=== PATIENT | female | born 1935 | race African-American/Black ===

== ENCOUNTER 2022-05-09 19:45 | Emergency (ER) | payer MEDICARE ==
[2022-05-09 21:15] LABS: ALT (SGPT) Less than 7 U/L (8-55); AST (SGOT) 10 U/L (5-34); Albumin 4.1 g/dL (3.4-4.8); Alkaline Phosphatase 64 U/L (40-110); Anion Gap 16 mmol/L (10-20); BUN (Urea Nitrogen) 15 mg/dL (9.8-20.1); Bilirubin, Total 0.5 mg/dL (0.2-1.2); Calc. Creatinine Clearance 0 mL/min (70-130); Calcium 9.9 mg/dL (7.8-10.44); Carbon Dioxide 26 mmol/L (23-31); Chloride 104 mmol/L (98-107); Estimated GFR 45; Globulin 3.4 g/dL (2.4-3.5); Glucose 139 mg/dL (83-110); Hemoglobin 13.9 g/dL (12.0-16.0); Mean Corpuscular HGB CONC 32.8 g/dL (32.0-36.0); Mean Corpuscular Hemoglobin 29.5 pg (27.0-31.0); Mean Corpuscular Volume 89.9 fL (78.0-98.0); Mean Platelet Volume 6.3 fL (7.4-10.4); Platelet Count 312 thou/uL (130-400); Protein, Total 7.5 g/dL (5.8-8.1); RBC Distribution Width 13.6 % (11.5-14.5); Red Blood Cell (RBC) Count 4.72 mill/uL (4.20-5.40); Sodium 143 mmol/L (136-145)
[2022-05-09 21:24] LABS: Potassium 2.9 mmol/L (3.5-5.1)
[2022-05-09 21:37] LABS: Eosinophils 1 % (0-10); Lymphocytes 32 % (21-51); MDiff Complete? YES; Monocytes 7 % (0-10); Neutrophil 60 % (42-75)
[2022-05-09 21:44] LABS: Bilirubin Negative (Negative); Blood, Urine Negative (Negative); Clarity Clear (Clear); Glucose, Urine (Dipstick) Negative (Negative); Ketone, Urine Negative (Negative); Leukocyte Negative (Negative); Nitrite Negative (Negative); Protein, Urine (Dipstick) Negative (Neg-Trace); Urobilinogen 0.2 mg/dL (Less than 2)
[2022-05-09] MEDS ORDERED: Potassium Chloride 20 MEQ TAB ONE (21:51)
[2022-05-09 21:55] LABS: Cocaine Metabolite Screen Not Detected (NotDetected); Methamphetamine Not Detected (NotDetected); Opiate Screen Not Detected (NotDetected); Phencyclidine (PCP) Not Detected (NotDetected); THC/Cannabinoid Screen Not Detected (NotDetected)
[2022-05-09 21:56] LABS: Amphetamine Not Detected (NotDetected); Barbiturates Screen Not Detected (NotDetected); Benzodiazepine Screen Not Detected (NotDetected); Medtox Control Line Valid? VALID (VALID); Methadone Not Detected (NotDetected); Oxycodone Screen Not Detected (NotDetected); Tricyclic Screen Not Detected (NotDetected)
[2022-05-10 06:07] LABS: Anion Gap 14 mmol/L (10-20); BUN (Urea Nitrogen) 12 mg/dL (9.8-20.1); Calc. Creatinine Clearance 0 mL/min (70-130); Calcium 9.4 mg/dL (7.8-10.44); Carbon Dioxide 27 mmol/L (23-31); Chloride 105 mmol/L (98-107); Estimated GFR 54; Glucose 102 mg/dL (83-110); Sodium 143 mmol/L (136-145)
[2022-05-10 06:16] LABS: Potassium 2.9 mmol/L (3.5-5.1)
[2022-05-10] MEDS ORDERED: Potassium Chloride 20 MEQ/100 ML PREMIX BAG ONE (06:20)
[2022-05-10] MEDS ORDERED: Atorvastatin Calcium 10 MG TAB PO SCH (09:00)
[2022-05-10] MEDS ORDERED: NIFEdipine XL 30 MG TAB ONE (09:01)
[2022-05-10] MEDS ORDERED: Potassium Chloride 20 MEQ TAB ONE (09:01)
[2022-05-10] MEDS ORDERED: Hydrochlorothiazide 25 MG TAB ONE (09:01)
[2022-05-10] MEDS ORDERED: Aspirin 325 MG TAB ONE (09:01)
[2022-05-10] MEDS ORDERED: Carvedilol 6.25 MG TAB ONE (09:01)
[2022-05-10 19:57] LABS: Anion Gap 14 mmol/L (10-20); BUN (Urea Nitrogen) 9 mg/dL (9.8-20.1); Calc. Creatinine Clearance 0 mL/min (70-130); Calcium 9.7 mg/dL (7.8-10.44); Carbon Dioxide 27 mmol/L (23-31); Chloride 103 mmol/L (98-107); Estimated GFR 69; Glucose 104 mg/dL (83-110); Potassium 3.4 mmol/L (3.5-5.1); Sodium 141 mmol/L (136-145)
[2022-05-11 07:55] LABS: #Basophils 0.1 thou/uL (0.0-0.2); #Eosinphils 0.1 thou/uL (0.0-0.7); #Lymphocytes 1.7 thou/uL (1.20-3.40); #Monocytes 0.5 thou/uL (0.11-0.59); %Eosinophils 1.3 % (0.0-10.0); %Lymphocytes 26.4 % (21.0-51.0); %Monocytes 7.2 % (0.0-10.0); Mean Corpuscular HGB CONC 32.8 g/dL (32.0-36.0); Mean Corpuscular Hemoglobin 29.6 pg (27.0-31.0); Mean Corpuscular Volume 90.1 fL (78.0-98.0); Mean Platelet Volume 6.4 fL (7.4-10.4); Platelet Count 308 thou/uL (130-400); RBC Distribution Width 13.4 % (11.5-14.5); Red Blood Cell (RBC) Count 4.74 mill/uL (4.20-5.40); White Blood Cell (WBC) Count 6.3 thou/uL (4.8-10.8)
[2022-05-11 08:09] LABS: ALT (SGPT) Less than 7 U/L (8-55); AST (SGOT) 11 U/L (5-34); Albumin 3.6 g/dL (3.4-4.8); Alkaline Phosphatase 63 U/L (40-110); Anion Gap 13 mmol/L (10-20); BUN (Urea Nitrogen) 9 mg/dL (9.8-20.1); Bilirubin, Total 0.7 mg/dL (0.2-1.2); Calc. Creatinine Clearance 0 mL/min (70-130); Calcium 9.5 mg/dL (7.8-10.44); Carbon Dioxide 29 mmol/L (23-31); Chloride 103 mmol/L (98-107); Estimated GFR 69; Globulin 3.2 g/dL (2.4-3.5); Glucose 103 mg/dL (83-110); Potassium 3.1 mmol/L (3.5-5.1); Protein, Total 6.8 g/dL (5.8-8.1); Sodium 142 mmol/L (136-145)
[2022-05-11] MEDS ORDERED: Aspirin 325 MG TAB PO SCH (08:15)
== END 2022-05-11 08:35 | disposition short-term general hospital (02) ==
LOC: BURERS 19:45
DX: T43.3X1A Poisoning by phenothiazine antipsychotics and neuroleptics, accidental (unintentional), initial encounter (principal); R29.810 Facial weakness; E87.6 Hypokalemia; I25.10 Atherosclerotic heart disease of native coronary artery without angina pectoris; E78.00 Pure hypercholesterolemia, unspecified; E78.5 Hyperlipidemia, unspecified; I10 Essential (primary) hypertension; Z86.73 Personal history of transient ischemic attack (TIA), and cerebral infarction without residual deficits; Z79.82 Long term (current) use of aspirin; Z79.899 Other long term (current) drug therapy
CPT/HCPCS: 36415; 51701; 70450; 71045; 80048; 80053; 80306; 81003; 83735; 84443; 84484; 85025; 93005; 96365; 96366; J3480

== ENCOUNTER 2022-05-14 19:59 | Inpatient (IN) | payer MEDICARE ==
[2022-05-14 21:06] VITALS: BMI 30.7
[2022-05-14] MEDS ORDERED: Nitroglycerin 0.4 MG TAB (25 Tab Bottle) SL PRN (21:42)
[2022-05-15] MEDS: Isosorbide Mononitrate 20 MG TAB PO SCH ×2 (09:43→20:20)
[2022-05-15] MEDS: Aspirin 81 mg Enteric Coated Tablet PO SCH (09:44)
[2022-05-15] MEDS: Carvedilol 6.25 MG TAB PO SCH ×2 (09:44→20:22)
[2022-05-15] MEDS: Hydrochlorothiazide 25 MG TAB PO SCH (09:44)
[2022-05-15] MEDS: Amlodipine 5 MG TAB PO SCH (09:45)
[2022-05-15] MEDS: POTASSIUM CITRATE 10 MEQ PO SCH (10:50)
[2022-05-15] MEDS: Atorvastatin Calcium 10 MG TAB PO SCH (20:22)
[2022-05-15] MEDS: Enoxaparin Sodium 40 MG/0.4 ML SYRINGE SC SCH (20:22)
[2022-05-15] MEDS: Donepezil HCl 10 MG TAB PO SCH (20:22)
[2022-05-16] MEDS ORDERED: Carvedilol 6.25 MG TAB PO SCH (09:30)
[2022-05-16] MEDS ORDERED: Amlodipine 5 MG TAB PO SCH (09:30)
[2022-05-16] MEDS: Hydrochlorothiazide 25 MG TAB PO SCH (09:47)
[2022-05-16] MEDS: Aspirin 81 mg Enteric Coated Tablet PO SCH (09:47)
[2022-05-16] MEDS: Isosorbide Mononitrate 20 MG TAB PO SCH ×2 (09:47→20:35)
[2022-05-16] MEDS: POTASSIUM CITRATE 10 MEQ PO SCH (09:49)
[2022-05-16] MEDS: Amlodipine 5 MG TAB PO SCH (09:50)
[2022-05-16] MEDS: Carvedilol 6.25 MG TAB PO SCH ×2 (09:50→20:35)
[2022-05-16] MEDS: Enoxaparin Sodium 40 MG/0.4 ML SYRINGE SC SCH (20:34)
[2022-05-16] MEDS: Atorvastatin Calcium 10 MG TAB PO SCH (20:35)
[2022-05-16] MEDS: Donepezil HCl 10 MG TAB PO SCH (20:35)
[2022-05-17] MEDS: Aspirin 81 mg Enteric Coated Tablet PO SCH (09:11)
[2022-05-17] MEDS: Amlodipine 5 MG TAB PO SCH (09:12)
[2022-05-17] MEDS: Isosorbide Mononitrate 20 MG TAB PO SCH ×2 (09:12→20:12)
[2022-05-17] MEDS: Carvedilol 6.25 MG TAB PO SCH ×2 (09:12→20:12)
[2022-05-17] MEDS: Hydrochlorothiazide 25 MG TAB PO SCH (09:13)
[2022-05-17] MEDS: POTASSIUM CITRATE 10 MEQ PO SCH (09:13)
[2022-05-17] MEDS: Enoxaparin Sodium 40 MG/0.4 ML SYRINGE SC SCH (20:11)
[2022-05-17] MEDS: Donepezil HCl 10 MG TAB PO SCH (20:11)
[2022-05-17] MEDS: Atorvastatin Calcium 10 MG TAB PO SCH (20:13)
[2022-05-18] MEDS: Isosorbide Mononitrate 20 MG TAB PO SCH ×2 (09:23→20:39)
[2022-05-18] MEDS: Amlodipine 5 MG TAB PO SCH (09:24)
[2022-05-18] MEDS: Aspirin 81 mg Enteric Coated Tablet PO SCH (09:24)
[2022-05-18] MEDS: Carvedilol 6.25 MG TAB PO SCH ×2 (09:24→20:39)
[2022-05-18] MEDS: Hydrochlorothiazide 25 MG TAB PO SCH (09:25)
[2022-05-18] MEDS: POTASSIUM CITRATE 10 MEQ PO SCH (09:25)
[2022-05-18] MEDS: Donepezil HCl 10 MG TAB PO SCH (20:40)
[2022-05-18] MEDS: Enoxaparin Sodium 40 MG/0.4 ML SYRINGE SC SCH (20:40)
[2022-05-18] MEDS: Atorvastatin Calcium 10 MG TAB PO SCH (20:40)
[2022-05-19] MEDS ORDERED: Acetaminophen 325 MG TAB PO PRN (08:51)
[2022-05-19] MEDS: Isosorbide Mononitrate 20 MG TAB PO SCH ×2 (09:38→20:32)
[2022-05-19] MEDS: Carvedilol 6.25 MG TAB PO SCH ×2 (09:41→20:32)
[2022-05-19] MEDS: Hydrochlorothiazide 25 MG TAB PO SCH (09:42)
[2022-05-19] MEDS: Aspirin 81 mg Enteric Coated Tablet PO SCH (09:42)
[2022-05-19] MEDS: Amlodipine 5 MG TAB PO SCH (09:42)
[2022-05-19] MEDS: POTASSIUM GLUCONATE 595 MG PO SCH (09:44)
[2022-05-19] MEDS: Enoxaparin Sodium 40 MG/0.4 ML SYRINGE SC SCH (20:31)
[2022-05-19] MEDS: Donepezil HCl 10 MG TAB PO SCH (20:33)
[2022-05-19] MEDS: Atorvastatin Calcium 10 MG TAB PO SCH (20:33)
[2022-05-20] MEDS: POTASSIUM GLUCONATE 595 MG PO SCH (09:26)
[2022-05-20] MEDS: Isosorbide Mononitrate 20 MG TAB PO SCH ×2 (09:26→20:29)
[2022-05-20] MEDS: Amlodipine 5 MG TAB PO SCH (09:27)
[2022-05-20] MEDS: Carvedilol 6.25 MG TAB PO SCH ×2 (09:27→20:28)
[2022-05-20] MEDS: Aspirin 81 mg Enteric Coated Tablet PO SCH (09:28)
[2022-05-20] MEDS: Hydrochlorothiazide 25 MG TAB PO SCH (09:28)
[2022-05-20] MEDS ORDERED: Polyethylene Glycol 3350 17 GM Packet PO PRN (11:46)
[2022-05-20] MEDS: Donepezil HCl 10 MG TAB PO SCH (20:30)
[2022-05-20] MEDS: Atorvastatin Calcium 10 MG TAB PO SCH (20:30)
[2022-05-20] MEDS: Enoxaparin Sodium 40 MG/0.4 ML SYRINGE SC SCH (20:30)
[2022-05-21 06:14] VITALS: TEMP 98.4
[2022-05-21] MEDS: Isosorbide Mononitrate 20 MG TAB PO SCH (09:08)
[2022-05-21] MEDS: Carvedilol 6.25 MG TAB PO SCH (09:09)
[2022-05-21] MEDS: Hydrochlorothiazide 25 MG TAB PO SCH (09:09)
[2022-05-21] MEDS: Aspirin 81 mg Enteric Coated Tablet PO SCH (09:09)
[2022-05-21] MEDS: POTASSIUM GLUCONATE 595 MG PO SCH (09:10)
[2022-05-21] MEDS: Amlodipine 5 MG TAB PO SCH (09:10)
[2022-05-21 09:14] VITALS: BP 168/70
== END 2022-05-21 11:10 | disposition home health service (06) | DRG 948 ==
LOC: BURMED 20:11
PROVIDERS: ADMIT Family Medicine; ATTEND Family Medicine
DX: R53.1 Weakness (principal); F03.90 Unspecified dementia, unspecified severity, without behavioral disturbance, psychotic disturbance, mood disturbance, and anxiety; I10 Essential (primary) hypertension; E78.5 Hyperlipidemia, unspecified; R09.02 Hypoxemia; G89.29 Other chronic pain; I73.9 Peripheral vascular disease, unspecified; Z86.73 Personal history of transient ischemic attack (TIA), and cerebral infarction without residual deficits; Z88.8 Allergy status to other drugs, medicaments and biological substances; Z88.6 Allergy status to analgesic agent; Z88.0 Allergy status to penicillin; Z91.013 Allergy to seafood; Z95.5 Presence of coronary angioplasty implant and graft; Z90.49 Acquired absence of other specified parts of digestive tract
CPT/HCPCS: 71046; J1650

== ENCOUNTER 2022-06-14 08:14 | Emergency (ER) | payer MEDICARE ==
[2022-06-14] MEDS ORDERED: Bacitracin 1 PK ONE (09:46)
== END 2022-06-14 10:00 | disposition home or self-care (01) ==
LOC: BURERS 08:14
DX: S01.81XA Laceration without foreign body of other part of head, initial encounter (principal); I25.10 Atherosclerotic heart disease of native coronary artery without angina pectoris; E78.00 Pure hypercholesterolemia, unspecified; I10 Essential (primary) hypertension; Z86.73 Personal history of transient ischemic attack (TIA), and cerebral infarction without residual deficits; Z79.899 Other long term (current) drug therapy; Z79.82 Long term (current) use of aspirin; W06.XXXA Fall from bed, initial encounter
CPT/HCPCS: 70450; 72125